=== PATIENT | female | born 1985 | race Hispanic/Latino ===

== ENCOUNTER 2017-04-23 17:37 | Observation (INO) | payer OTHER ==
[2017-04-23] MEDS ORDERED: Iohexol 240 (50 ml) PO ONE (19:13)
[2017-04-23] MEDS ORDERED: Iohexol 240 (50 ml) ONE (19:52)
--- NOTE | 2017-04-23 19:53 | ED PDOC ---
HPI: Abdomen Time Seen by Provider: 04/23/17 18:04 Chief Complaint (Nursing): Abdominal Pain Chief Complaint (Provider): Epigastric and left upper quadrant abdominal pain History Per: Patient History/Exam Limitations: clinical condition Onset/Duration Of Symptoms: Days (x2) Additional Complaint(s): 31 year old female with a history of irritable bowel syndrome presents to the Emergency Department complaining of epigastric and left upper quadrant abdominal pain since yesterday. Pain has gradually gotten worse today. Also complains of constipation, which she states is typical for her IBS, and 1 episode of vomiting. Vomitus was non-bloody. Patient denies any fever, chest pain, urinary symptoms, or bloody stool. PMD: Provider in [place] Past Medical History Reviewed: Historical Data, Nursing Documentation, Vital Signs Vital Signs: Last Vital Signs Temp 98.6 F 04/24/17 07:50 Pulse 72 04/24/17 07:50 Resp 18 04/24/17 07:50 BP 94/58 L 04/24/17 07:50 Pulse Ox 98 04/24/17 07:50 - Medical History Other PMH: Irritable Bowel Syndrome - Surgical History Surgical History: No Surg Hx - Family History Family History: States: Unknown Family Hx - Social History Current smoker - smoking cessation education provided: No Alcohol: None Drugs: Denies - Home Medications Home Medications: Ambulatory Orders Medication Instructions Recorded Ciprofloxacin [Cipro] 500 mg PO BID #10 tab 04/24/17 Linaclotide [Linzess] 145 mcg PO DAILY 04/24/17 Sertraline [Zoloft] 50 mg PO DAILY 04/24/17 metroNIDAZOLE [Flagyl] 500 mg PO TID #15 tab 04/24/17 - Allergies Allergies/Adverse Reactions: Allergies Allergy/AdvReac Type Severity Reaction Status Date / Time gustavo Allergy ANAPHYLAXIS Verified 04/23/17 17:57 shellfish derived Allergy RASH Verified 04/24/17 01:49 Review of Systems ROS Statement: Except As Marked, All Systems Reviewed And Found Negative Cardiovascular: Negative for: Chest Pain Gastrointestinal: Positive for: Vomiting (non-bloody), Abdominal Pain ( epigastric and left upper quadrant), Constipation. Negative for: Hematochezia Genitourinary Female: Negative for: Dysuria, Frequency, Hematuria Physical Exam - Reviewed Nursing Documentation Reviewed: Yes Vital Signs Reviewed: Yes - Physical Exam Appears: Positive for: Well, Non-toxic, No Acute Distress Head Exam: Positive for: ATRAUMATIC, NORMAL INSPECTION, NORMOCEPHALIC Skin: Positive for: Normal Color, Warm, DRY Eye Exam: Positive for: EOMI, Normal appearance, PERRL Neck: Positive for: Normal, Painless ROM Cardiovascular/Chest: Positive for: Regular Rate, Rhythm. Negative for: Murmur Respiratory: Positive for: Normal Breath Sounds. Negative for: Accessory Muscle Use, Respiratory Distress Gastrointestinal/Abdominal: Positive for: Soft, Tenderness (Epigastric left upper and right upper quadrant). Negative for: Distended, Guarding Back: Positive for: Normal Inspection. Negative for: Vertebral Tenderness Extremity: Positive for: Normal ROM. Negative for: Pedal Edema, Calf Tenderness Neurologic/Psych: Positive for: Alert, Oriented - Laboratory Results Result Diagrams: 04/24/17 06:00 04/24/17 06:00 - ECG O2 Sat by Pulse Oximetry: 100 (RA) Pulse Ox Interpretation: Normal Medical Decision Making Medical Decision Making: Initial Impression: Abdominal Pain Differential: Gastritis, pancreatitis, colitis, and rule out acute appendicitis Initial Plan: --CT of the Abdomen and Pelvis without PO Contrast --CMP --Lipase --Urine --Urine Dipstick --CBC with Differential --Iohexol 50 mL PO --Zofran Tab 4mg PO --Reevaluation Labs Reviewed: LFTs elevated, WBC at 15.8, Potassium is low. CT ABDOMEN/PELVIS: FINDINGS: Lower thorax: Minimal atelectasis. ABDOMEN: Liver: Unremarkable. No mass. Gallbladder and bile ducts: No calcified stones. No ductal dilation. Pancreas: No ductal dilation. No mass. Spleen: No splenomegaly. Adrenals: No mass. Kidneys and ureters: No mass. No hydronephrosis. Stomach and bowel: No definite mural thickening. No obstruction. Appendix: Borderline enlarged appendix, 6-7 mm in diameter. Apparent mild mucosal enhancement. Equivocal minimal stranding about appendix. PELVIS: Bladder: Unremarkable. Reproductive: Small left ovarian follicle. ABDOMEN and PELVIS: Intraperitoneal space: No significant fluid collection. No free air. Bones/joints: No acute fracture. Soft tissues: Unremarkable. Vasculature: Unremarkable. No aneurysm. Lymph nodes: No pathologically enlarged lymph nodes. IMPRESSION: 1. Borderline enlarged appendix with apparent mild mucosal enhancement. Early appendicitis not excluded. Clinical correlation is needed. 2. Incidental/non-acute findings are described above. Thank you for allowing us to participate in the care of your patient. Dictated and Authenticated by: Dane Becker MD 04/23/2017 10:59 PM Eastern Time ([place] & [place]) Time: 2305 Patient history, lab findings and CT results discussed with Dr. Beckwith. Dr. Beckwith requesting patient to be admitted to hospitalist for equivocal appendicitis; requesting NO ANTIBIOTICS to be given at this time. Scribe Attestation: Documented by Amanda White, acting as a scribe for Mick King MD Provider Scribe Attestation: All medical record entries made by the Scribe were at my direction and personally dictated by me. I have reviewed the chart and agree that the record accurately reflects my personal performance of the history, physical exam, medical decision making, and the department course for this patient. I have also personally directed, reviewed, and agree with the discharge instructions and disposition Disposition - Clinical Impression Clinical Impression: Abdominal pain in female - Patient ED Disposition Is Patient to be Admitted: Yes Discussed With DrGeon: Nolan Joseph Doctor Will See Patient In The: Hospital Counseled Patient/Family Regarding: Studies Performed, Diagnosis - Disposition Disposition Time: 23:00 Condition: FAIR - Pt Status Changed To: Hospital Disposition Of: Observation - POA Present On Arrival: None
[2017-04-23 20:04] LABS: BASO # 0.1 K/uL (0.0-0.2); BASO % 0.4 % (0.0-2.0); EOS # 0.1 K/uL (0.0-0.7); EOS % 0.9 % (0.0-4.0); HEMOGLOBIN 12.1 g/dL (12.0-16.0); LYMPH # 0.3 K/uL (1.0-4.3); LYMPH % 2.1 % (20.0-40.0); MEAN CELL VOLUME 94.9 fl (81.0-99.0); MEAN CORPUSCULAR HGB CONC 32.6 g/dL (33.0-37.0); MEAN PLATELET VOLUME 9.1 fl (7.2-11.7); MONO # 0.4 K/uL (0.0-0.8); MONO % 2.3 % (0.0-10.0); NEUT # 14.9 K/uL (1.8-7.0); NEUT % 94.3 % (50.0-75.0); NRBC % 0.1 % (0.0-0.0); PLATELET COUNT 262 K/uL (130-400); WHITE BLOOD COUNT 15.8 K/uL (4.8-10.8)
[2017-04-23 20:09] LABS: ALB/GLOB RATIO 1.4 (1.0-2.1); ALBUMIN 4.1 g/dL (3.5-5.0); ALT/SGPT 75 U/L (9-52); AST/SGOT 125 U/L (14-36); BLOOD UREA NITROGEN 14 mg/dl (7-17); CALCIUM 9.2 mg/dL (8.4-10.2); GFR AFRICAN-AMERICAN > 60; GFR NON-AFRICAN AMERICAN > 60; LIPASE 99 U/L (23-300)
[2017-04-23] MEDS ORDERED: Iohexol 300 100 ML IJ ONE (21:36)
[2017-04-23] MEDS ORDERED: Sodium Chloride 0.9% 50 ML IV ONE (21:36)
[2017-04-23 22:10] LABS: LYMPHOCYTE 1 % (20-50); MONOCYTE 1 % (0-10); NEUTROPHIL 98 % (42-75); PLATELET ESTIMATE NORMAL (NORMAL); TOTAL CELLS COUNTED 100
--- NOTE | 2017-04-23 23:00 | CT ---
EXAM: CT Abdomen and Pelvis With Intravenous Contrast CLINICAL HISTORY: 31 years old, female; Pain; Abdominal pain; Generalized; Patient HX: Abd pain. Irritable bowel syndrome TECHNIQUE: Axial computed tomography images of the abdomen and pelvis with intravenous contrast. All CT scans at this facility use one or more dose reduction techniques, viz.: automated exposure control; ma/kV adjustment per patient size (including targeted exams where dose is matched to indication; i.e. head); or iterative reconstruction technique. Coronal and sagittal reformatted images were created and reviewed. CONTRAST: 98 mL of OMNIPAQUE administered intravenously. COMPARISON: CT - ABD PELVIS IV CONTRAST ONLY 2016-06-05 03:10 FINDINGS: Lower thorax: Minimal atelectasis. ABDOMEN: Liver: Unremarkable. No mass. Gallbladder and bile ducts: No calcified stones. No ductal dilation. Pancreas: No ductal dilation. No mass. Spleen: No splenomegaly. Adrenals: No mass. Kidneys and ureters: No mass. No hydronephrosis. Stomach and bowel: No definite mural thickening. No obstruction. Appendix: Borderline enlarged appendix, 6-7 mm in diameter. Apparent mild mucosal enhancement. Equivocal minimal stranding about appendix. PELVIS: Bladder: Unremarkable. Reproductive: Small left ovarian follicle. ABDOMEN and PELVIS: Intraperitoneal space: No significant fluid collection. No free air. Bones/joints: No acute fracture. Soft tissues: Unremarkable. Vasculature: Unremarkable. No aneurysm. Lymph nodes: No pathologically enlarged lymph nodes. IMPRESSION: 1. Borderline enlarged appendix with apparent mild mucosal enhancement. Early appendicitis not excluded. Clinical correlation is needed. 2. Incidental/non-acute findings are described above.
[2017-04-23] MEDS ORDERED: Sodium Chloride 0.9% 1,000 ML IV STA (23:12)
--- NOTE | 2017-04-23 23:22 | CP.PCM.HP ---
History of Present Illness - History of Present Illness History of Present Illness: PMD: Provider in [place] Chief Complaint: Abdominal Pain The patient was seen and examined in the ED HPI: 31 years old female with hx of IBS, comes with a 2 days hx of sharp, continuous then crampy Epigastric pain radiating to the left upper Quadrant with an intensity of 8/10 today. she had one episode of vomiting and is constipated. No fever, chest pain, SOB, dysuria nor urinary frequency. She took 2 Advil and linzess without much relief. PMH: IBS; Hemorrhoids PSH: Denies SH: No illegal drug use; No Smoking: Occasional Alcohol; Lkive with her ; Works in [employer] FH: States: Unknown Family Hx Allergies: NKDA Gustavo Medication: Reviewed Present on Admission - Present on Admission Any Indicators Present on Admission: No History of DVT/PE: No History of Uncontrolled Diabetes: No Urinary Catheter: No Decubitus Ulcer Present: No Review of Systems - Constitutional Constitutional: Headache. absent: Chills, Fever - EENT Eyes: Requires Corrective Lenses. absent: Diplopia, Floaters, Sees Flashes Ears: absent: Decreased Hearing, Ear Discharge, Ear Pain Nose/Mouth/Throat: absent: Epistaxis, Nasal Congestion, Nasal Discharge - Cardiovascular Cardiovascular: absent: Chest Pain, Dyspnea, Edema, Lightheadedness, Palpitations - Respiratory Respiratory: absent: Cough, Dyspnea, Stridor, Excessive Mucous Production - Gastrointestinal Gastrointestinal: Abdominal Pain, Constipation, Cramping, Nausea, Vomiting. absent: Diarrhea - Genitourinary Genitourinary: absent: Dysuria, Flank Pain, Hematuria, Urinary Frequency - Musculoskeletal Musculoskeletal: absent: Arthralgias, Back Pain, Joint Swelling, Muscle Weakness - Integumentary Integumentary: absent: Pruritus, Rash, Skin Ulcer, Sores, Striae, Swelling - Neurological Neurological: Headaches. absent: Confusion, Dizziness, Focal Weakness, Loss of Vision - Psychiatric Psychiatric: absent: Anxiety, Depression, Panic Attacks - Endocrine Endocrine: absent: Palpitations, Polydipsia, Polyphagia, Polyuria - Hematologic/Lymphatic Hematologic: absent: Easy Bleeding, Easy Bruising Past Patient History - Past Medical History & Family History Past Medical History?: Yes - Past Social History Smoking Status: Never Smoked Chewing Tobacco Use: No Cigar Use: No Alcohol: Social Drugs: Denies Home Situation {Lives}: With Family - CARDIAC Hx Cardiac Disorders: No - PULMONARY Hx Respiratory Disorders: No - NEUROLOGICAL Hx Neurological Disorder: No - HEENT Hx HEENT Problems: No - RENAL Hx Chronic Kidney Disease: No - ENDOCRINE/METABOLIC Hx Endocrine Disorders: No - HEMATOLOGICAL/ONCOLOGICAL Hx Blood Disorders: No - INTEGUMENTARY Hx Dermatological Problems: No - MUSCULOSKELETAL/RHEUMATOLOGICAL Hx Musculoskeletal Disorders: No - GASTROINTESTINAL Hx Hemorrhoids: Yes Hx Irritable Bowel: Yes - GENITOURINARY/GYNECOLOGICAL Hx Genitourinary Disorders: No - PSYCHIATRIC Hx Psychophysiologic Disorder: No Hx Substance Use: No - SURGICAL HISTORY Hx Surgeries: No - ANESTHESIA Hx Anesthesia: No Meds Allergies/Adverse Reactions: Allergies Allergy/AdvReac Type Severity Reaction Status Date / Time gustavo Allergy ANAPHYLAXIS Verified 04/23/17 17:57 Physical Exam - Constitutional Appears: No Acute Distress - Head Exam Head Exam: ATRAUMATIC, NORMAL INSPECTION, NORMOCEPHALIC - Eye Exam Eye Exam: EOMI, Normal appearance Pupil Exam: NORMAL ACCOMODATION, PERRL - ENT Exam ENT Exam: Mucous Membranes Moist, Normal Exam, Normal External Ear Exam, Normal Oropharynx - Neck Exam Neck exam: Positive for: Full Rom, Normal Inspection. Negative for: Lymphadenopathy, Tenderness - Respiratory Exam Respiratory Exam: Clear to Auscultation Bilateral. absent: Rales, Rhonchi, Wheezes - Cardiovascular Exam Cardiovascular Exam: REGULAR RHYTHM, RRR, +S1, +S2 - GI/Abdominal Exam GI & Abdominal Exam: Normal Bowel Sounds, Soft Additional comments: Pain to the Epigastrium and LUQ, No guarding, no rebound - Rectal Exam Rectal Exam: Deferred - Extremities Exam Extremities exam: Positive for: normal inspection. Negative for: calf tenderness, joint swelling, pedal edema - Back Exam Back exam: NORMAL INSPECTION. absent: CVA tenderness (L), CVA tenderness (R) - Neurological Exam Neurological exam: Alert, CN II-XII Intact, Oriented x3, Reflexes Normal - Psychiatric Exam Psychiatric exam: Normal Affect, Normal Mood - Skin Skin Exam: Dry, Intact, Normal Color, Warm Results - Vital Signs Recent Vital Signs: Last Vital Signs Temp 97.8 F 04/23/17 17:57 Pulse 82 04/23/17 17:57 Resp 18 04/23/17 17:57 BP 119/54 L 04/23/17 17:57 Pulse Ox 100 04/23/17 23:14 - Labs Result Diagrams: 04/23/17 19:45 04/23/17 19:45 Labs: Laboratory Results - last 24 hr 04/23/17 04/23/17 19:45 19:45 WBC 15.8 H RBC 3.90 Hgb 12.1 Hct 37.0 MCV 94.9 MCH 31.0 MCHC 32.6 L RDW 13.0 Plt Count 262 MPV 9.1 Neut % (Auto) 94.3 H Lymph % (Auto) 2.[address] [place] % (Auto) 2.3 Eos % (Auto) 0.9 Baso % (Auto) 0.4 Neut # 14.9 H Lymph # 0.[address] [place] # 0.4 Eos # 0.1 Baso # 0.1 Neutrophils % (Manual) 98 H Lymphocytes % (Manual) 1 L Monocytes % (Manual) 1 Platelet Estimate Normal Sodium 139 Potassium 3.5 L Chloride 106 Carbon Dioxide 22 Anion Gap 15 BUN 14 Creatinine 0.6 L Est GFR ( Amer) > 60 Est GFR (Non-Af Amer) > 60 Random Glucose 99 Calcium 9.2 Total Bilirubin 0.8 AST 125 H ALT 75 H D Alkaline Phosphatase 118 Total Protein 7.0 Albumin 4.1 Globulin 2.9 Albumin/Globulin Ratio 1.4 Lipase 99 - Imaging and Cardiology CT scan - abdomen Status: Image reviewed by me, Report reviewed by me Additional comment: EXAM: CT Abdomen and Pelvis With Intravenous Contrast COMPARISON: CT - ABD PELVIS IV CONTRAST ONLY 2016-06-05 03:10 FINDINGS: Lower thorax: Minimal atelectasis. ABDOMEN: Liver: Unremarkable. No mass. Gallbladder and bile ducts: No calcified stones. No ductal dilation. Pancreas: No ductal dilation. No mass. Spleen: No splenomegaly. Adrenals: No mass. Kidneys and ureters: No mass. No hydronephrosis. Stomach and bowel: No definite mural thickening. No obstruction. Appendix: Borderline enlarged appendix, 6-7 mm in diameter. Apparent mild mucosal enhancement. Equivocal minimal stranding about appendix. PELVIS: Bladder: Unremarkable. Reproductive: Small left ovarian follicle. ABDOMEN and PELVIS: Intraperitoneal space: No significant fluid collection. No free air. Bones/joints: No acute fracture. Soft tissues: Unremarkable. Vasculature: Unremarkable. No aneurysm. Lymph nodes: No pathologically enlarged lymph nodes. IMPRESSION: 1. Borderline enlarged appendix with apparent mild mucosal enhancement. Early appendicitis not excluded. Clinical correlation is needed. 2. Incidental/non-acute findings are described above Assessment & Plan - Assessment and Plan (Free Text) Assessment: #. Acute Appendicitis #. hypookalemia #. Leukocytosis Plan: 31 years old female with hx of IBS, comes with a 2 days hx of sharp, continuous then crampy Epigastric pain radiating to the left upper Quadrant with one episode of vomiting. She took 2 Advil and linzess without much relief. #. Acute Appendicitis IMPRESSION: 1. Borderline enlarged appendix with apparent mild mucosal enhancement. Early appendicitis not excluded. - Consult Dr Beckwith surgery - NPO - IV fluids - Zofran for vomiting - follow CBC #. Hypokalemia - Repleat with KCL in IV fluids - Follow Electrolytes #. Leukocytosis - Follow WBC - Follow UA #. DVT Prophylaxis with SCD #. Code Status: Full - Date & Time Date: 04/23/17 Time: 23:22
[2017-04-24 06:45] LABS: SQUAMOUS EPITHIAL 1 /hpf (0-5); URINE BILIRUBIN NEGATIVE (NEGATIVE); URINE BLOOD MODERATE (NEGATIVE); URINE CLARITY SLIGHTY-CLOUDY (Clear); URINE COLOR YELLOW (YELLOW); URINE GLUCOSE (UA) NEG (Normal); URINE LEUKOCYTE ESTERASE NEG Leu/uL (Negative); URINE NITRATE NEGATIVE (NEGATIVE); URINE PROTEIN NEGATIVE (NEGATIVE); URINE UROBILINOGEN 0.2-1.0 mg/dL (0.2-1.0)
[2017-04-24 07:35] LABS: BASO % 0.3 % (0.0-2.0); EOS # 0.4 K/uL (0.0-0.7); HEMOGLOBIN 10.2 g/dL (12.0-16.0); LYMPH # 1.1 K/uL (1.0-4.3); LYMPH % 7.8 % (20.0-40.0); MEAN CELL VOLUME 95.8 fl (81.0-99.0); MEAN CORPUSCULAR HEMOGLOBIN 30.9 pg (27.0-31.0); MEAN CORPUSCULAR HGB CONC 32.2 g/dL (33.0-37.0); MEAN PLATELET VOLUME 9.3 fl (7.2-11.7); MONO # 0.4 K/uL (0.0-0.8); MONO % 2.8 % (0.0-10.0); NEUT # 12.4 K/uL (1.8-7.0); NEUT % 86.1 % (50.0-75.0); RBC 3.29 Mil/uL (3.80-5.20); RED CELL DISTRIBUTION WIDTH 13.3 % (11.5-14.5); WHITE BLOOD COUNT 14.3 K/uL (4.8-10.8)
[2017-04-24 07:51] VITALS: BP 94/58; PULSE 72; RESP 18; TEMP 98.6
[2017-04-24 08:26] LABS: INR 1.1 (0.9-1.2); PROTHROMBIN TIME 11.9 Seconds (9.8-13.1)
[2017-04-24 08:27] LABS: PARTIAL THROMBOPLASTIN TIME 26.9 Seconds (25.6-37.1)
[2017-04-24 08:33] LABS: ALB/GLOB RATIO 1.2 (1.0-2.1); ALBUMIN 3.1 g/dL (3.5-5.0); ALT/SGPT 56 U/L (9-52); AST/SGOT 50 U/L (14-36); BLOOD UREA NITROGEN 10 mg/dl (7-17); CALCIUM 8.2 mg/dL (8.4-10.2); GFR AFRICAN-AMERICAN > 60; GFR NON-AFRICAN AMERICAN > 60
--- NOTE | 2017-04-24 08:56 | CP.PCM.CON ---
History of Present Illness - History of Present Illness History of Present Illness: General Surgery: Dr Beckwith PT is a 31F with history of IBS-C who presented to ED with ~24 hour history of LUQ pain. Pt states pain was sharp and crampy in nature, but has since resolved. She denies any nausea, vomiting, fevers or chills. She has been having bowel movements but they have been consistently liquid in nature. Pt denies any recent sick contacts. Denies any pain the RLQ or umbilicus. Pain is not exarcerbated by movement of physical exam. Pt states she has an appetite Review of Systems - Review of Systems All systems: reviewed and no additional remarkable complaints except (as per hpi ) Past Patient History - Past Medical History & Family History Past Medical History?: Yes - Past Social History Smoking Status: Never Smoked - CARDIAC Hx Cardiac Disorders: No - PULMONARY Hx Respiratory Disorders: No - NEUROLOGICAL Hx Neurological Disorder: No - HEENT Hx HEENT Problems: No - RENAL Hx Chronic Kidney Disease: No - ENDOCRINE/METABOLIC Hx Endocrine Disorders: No - HEMATOLOGICAL/ONCOLOGICAL Hx Blood Disorders: No - INTEGUMENTARY Hx Dermatological Problems: No - MUSCULOSKELETAL/RHEUMATOLOGICAL Hx Musculoskeletal Disorders: No Hx Falls: No - GASTROINTESTINAL Hx Gastrointestinal Disorders: Yes Hx Irritable Bowel: Yes - GENITOURINARY/GYNECOLOGICAL Hx Genitourinary Disorders: No - PSYCHIATRIC Hx Psychophysiologic Disorder: No Hx Substance Use: No - SURGICAL HISTORY Hx Surgeries: Yes Other/Comment: Colonoscopy - ANESTHESIA Hx Anesthesia: Yes Hx Anesthesia Reactions: No Meds Allergies/Adverse Reactions: Allergies Allergy/AdvReac Type Severity Reaction Status Date / Time gustavo Allergy ANAPHYLAXIS Verified 04/23/17 17:57 shellfish derived Allergy RASH Verified 04/24/17 01:49 - Medications Medications: Current Medications Potassium Chloride 10 meq/ (Sodium Chloride) 1,005 mls @ 125 mls/hr IV .Q8H3M SUE Stop: 04/25/17 00:29 Last Admin: 04/24/17 08:37 Dose: Not Given Ketorolac Tromethamine (Toradol) 15 mg IVP Q6 PRN PRN Reason: Other Last Admin: 04/24/17 01:31 Dose: 15 mg Ondansetron HCl (Zofran Inj) 4 mg IVP Q4 PRN PRN Reason: Nausea/Vomiting Physical Exam - Constitutional Appears: Non-toxic, No Acute Distress - Head Exam Head Exam: NORMAL INSPECTION - Eye Exam Eye Exam: Normal appearance - ENT Exam ENT Exam: Mucous Membranes Moist - Respiratory Exam Respiratory Exam: NORMAL BREATHING PATTERN. absent: Accessory Muscle Use, Respiratory Distress - Cardiovascular Exam Cardiovascular Exam: REGULAR RHYTHM. absent: Tachycardia - GI/Abdominal Exam GI & Abdominal Exam: Normal Bowel Sounds, Soft. absent: Distended, Firm, Guarding, Hernia, Tenderness - Neurological Exam Neurological exam: Alert, Oriented x3 - Psychiatric Exam Psychiatric exam: Normal Affect, Normal Mood - Skin Skin Exam: Normal Color, Warm Results - Vital Signs Recent Vital Signs: Last Vital Signs Temp 98.6 F 04/24/17 07:50 Pulse 72 04/24/17 07:50 Resp 18 04/24/17 07:50 BP 94/58 L 04/24/17 07:50 Pulse Ox 98 04/24/17 07:50 - Labs Result Diagrams: 04/24/17 06:00 04/24/17 06:00 Labs: Laboratory Results - last 24 hr 04/23/17 04/23/17 04/24/17 19:45 19:45 06:00 WBC 15.8 H 14.3 H RBC 3.90 3.29 L Hgb 12.1 10.2 L Hct 37.0 31.6 L MCV 94.9 95.8 MCH 31.0 30.9 MCHC 32.6 L 32.2 L RDW 13.0 13.3 Plt Count 262 239 MPV 9.1 9.3 Neut % (Auto) 94.3 H 86.1 H Lymph % (Auto) 2.1 L 7.8 L [place] % (Auto) 2.3 2.8 Eos % (Auto) 0.9 3.0 Baso % (Auto) 0.4 0.3 Neut # 14.9 H 12.4 H Lymph # 0.3 L 1.1 [place] # 0.4 0.4 Eos # 0.1 0.4 Baso # 0.1 0.0 Neutrophils % (Manual) 98 H Lymphocytes % (Manual) 1 L Monocytes % (Manual) 1 Platelet Estimate Normal PT INR APTT Sodium 139 Potassium 3.5 L Chloride 106 Carbon Dioxide 22 Anion Gap 15 BUN 14 Creatinine 0.6 L Est GFR ( Amer) > 60 Est GFR (Non-Af Amer) > 60 Random Glucose 99 Calcium 9.2 Total Bilirubin 0.8 AST 125 H ALT 75 H D Alkaline Phosphatase 118 Total Protein 7.0 Albumin 4.1 Globulin 2.9 Albumin/Globulin Ratio 1.4 Lipase 99 Urine Color Urine Clarity Urine pH Ur Specific [place] Urine Protein Urine Glucose (UA) Urine Ketones Urine Blood Urine Nitrate Urine Bilirubin Urine Urobilinogen Ur Leukocyte Esterase Urine RBC (Auto) Urine Microscopic WBC Ur Squamous Epith Cells 04/24/17 04/24/17 04/24/17 06:00 06:00 06:15 WBC RBC Hgb Hct MCV MCH MCHC RDW Plt Count MPV Neut % (Auto) Lymph % (Auto) [place] % (Auto) Eos % (Auto) Baso % (Auto) Neut # Lymph # [place] # Eos # Baso # Neutrophils % (Manual) Lymphocytes % (Manual) Monocytes % (Manual) Platelet Estimate PT 11.9 INR 1.1 APTT 26.9 Sodium 140 Potassium 3.3 L Chloride 107 Carbon Dioxide 24 Anion Gap 12 BUN 10 Creatinine 0.7 Est GFR ( Amer) > 60 Est GFR (Non-Af Amer) > 60 Random Glucose 83 Calcium 8.2 L Total Bilirubin 0.7 AST 50 H D ALT 56 H D Alkaline Phosphatase 80 Total Protein 5.7 L Albumin 3.1 L D Globulin 2.6 Albumin/Globulin Ratio 1.2 Lipase Urine Color Yellow Urine Clarity Slighty-cloudy Urine pH 5.0 Ur Specific [place] 1.060 H Urine Protein Negative Urine Glucose (UA) Neg Urine Ketones 20 Urine Blood Moderate Urine Nitrate Negative Urine Bilirubin Negative Urine Urobilinogen 0.2-1.0 Ur Leukocyte Esterase Neg Urine RBC (Auto) 4 H Urine Microscopic WBC 5 Ur Squamous Epith Cells 1 Assessment & Plan - Assessment and Plan (Free Text) Assessment: 31F with abdominal pain; resolved Plan: presentation not consistent with appendicitis - CT equivocal symptoms not resolved OK to trial CLD and advance as tolerated clear for D/C this afternoon from surgery if pt tolerates diet d/w Dr Beckwith who has evaluated the pt and agrees Berry, PGY3
[2017-04-24] MEDS ORDERED: Piperacillin/Tazobact 3.375 GM in Sodium Chloride 0.9% 100 ML IVPB SCH (09:00)
--- NOTE | 2017-04-24 14:13 | CP.PCM.DIS ---
Provider - Provider Date of Admission: 04/23/17 23:14 Attending physician: Nolan Joseph Consults: Surgery : Dr Beckwith Time Spent in preparation of Discharge (in minutes): 30 Diagnosis - Discharge Diagnosis (1) Abdominal pain Status: Acute (2) IBS (irritable bowel syndrome) Status: Chronic (3) Transaminitis Status: Acute (4) Depression Status: Chronic Hospital Course - Lab Results Lab Results: Most Recent Lab Values WBC 14.3 K/uL (4.8-10.8) H 04/24/17 06:00 RBC 3.29 Mil/uL (3.80-5.20) L 04/24/17 06:00 Hgb 10.2 g/dL (12.0-16.0) L 04/24/17 06:00 Hct 31.6 % (34.0-47.0) L 04/24/17 06:00 MCV 95.8 fl (81.0-99.0) 04/24/17 06:00 MCH 30.9 pg (27.0-31.0) 04/24/17 06:00 MCHC 32.2 g/dL (33.0-37.0) L 04/24/17 06:00 RDW 13.3 % (11.5-14.5) 04/24/17 06:00 Plt Count 239 K/uL (130-400) 04/24/17 06:00 MPV 9.3 fl (7.2-11.7) 04/24/17 06:00 Neut % (Auto) 86.1 % (50.0-75.0) H 04/24/17 06:00 Lymph % (Auto) 7.8 % (20.0-40.0) L 04/24/17 06:00 [place] % (Auto) 2.8 % (0.0-10.0) 04/24/17 06:00 Eos % (Auto) 3.0 % (0.0-4.0) 04/24/17 06:00 Baso % (Auto) 0.3 % (0.0-2.0) 04/24/17 06:00 Neut # 12.4 K/uL (1.8-7.0) H 04/24/17 06:00 Lymph # 1.1 K/uL (1.0-4.3) 04/24/17 06:00 [place] # 0.4 K/uL (0.0-0.8) 04/24/17 06:00 Eos # 0.4 K/uL (0.0-0.7) 04/24/17 06:00 Baso # 0.0 K/uL (0.0-0.2) 04/24/17 06:00 Neutrophils % (Manual) 98 % (42-75) H 04/23/17 19:45 Lymphocytes % (Manual) 1 % (20-50) L 04/23/17 19:45 Monocytes % (Manual) 1 % (0-10) 04/23/17 19:45 Platelet Estimate Normal (NORMAL) 04/23/17 19:45 PT 11.9 Seconds (9.8-13.1) 04/24/17 06:00 INR 1.1 (0.9-1.2) 04/24/17 06:00 APTT 26.9 Seconds (25.6-37.1) 04/24/17 06:00 Sodium 140 mmol/l (132-148) 04/24/17 06:00 Potassium 3.3 MMOL/L (3.6-5.0) L 04/24/17 06:00 Chloride 107 mmol/L (98-107) 04/24/17 06:00 Carbon Dioxide 24 mmol/L (22-30) 04/24/17 06:00 Anion Gap 12 (10-20) 04/24/17 06:00 BUN 10 mg/dl (7-17) 04/24/17 06:00 Creatinine 0.7 mg/dl (0.7-1.2) 04/24/17 06:00 Est GFR ( Amer) > 60 04/24/17 06:00 Est GFR (Non-Af Amer) > 60 04/24/17 06:00 Random Glucose 83 mg/dL (65-105) 04/24/17 06:00 Calcium 8.2 mg/dL (8.4-10.2) L 04/24/17 06:00 Total Bilirubin 0.7 mg/dl (0.2-1.3) 04/24/17 06:00 AST 50 U/L (14-36) H D 04/24/17 06:00 ALT 56 U/L (9-52) H D 04/24/17 06:00 Alkaline Phosphatase 80 U/L (38-126) 04/24/17 06:00 Total Protein 5.7 G/DL (6.3-8.2) L 04/24/17 06:00 Albumin 3.1 g/dL (3.5-5.0) L D 04/24/17 06:00 Globulin 2.6 gm/dL (2.2-3.9) 04/24/17 06:00 Albumin/Globulin Ratio 1.2 (1.0-2.1) 04/24/17 06:00 Lipase 99 U/L (23-300) 04/23/17 19:45 Urine Color Yellow (YELLOW) 04/24/17 06:15 Urine Clarity Slighty-cloudy (Clear) 04/24/17 06:15 Urine pH 5.0 (5.0-8.0) 04/24/17 06:15 Ur Specific [place] 1.060 (1.003-1.030) H 04/24/17 06:15 Urine Protein Negative mg/dL (NEGATIVE) 04/24/17 06:15 Urine Glucose (UA) Neg mg/dL (Normal) 04/24/17 06:15 Urine Ketones 20 mg/dL (NEGATIVE) 04/24/17 06:15 Urine Blood Moderate (NEGATIVE) 04/24/17 06:15 Urine Nitrate Negative (NEGATIVE) 04/24/17 06:15 Urine Bilirubin Negative (NEGATIVE) 04/24/17 06:15 Urine Urobilinogen 0.2-1.0 mg/dL (0.2-1.0) 04/24/17 06:15 Ur Leukocyte Esterase Neg Reji/uL (Negative) 04/24/17 06:15 Urine RBC (Auto) 4 /hpf (0-3) H 04/24/17 06:15 Urine Microscopic WBC 5 /hpf (0-5) 04/24/17 06:15 Ur Squamous Epith Cells 1 /hpf (0-5) 04/24/17 06:15 - Hospital Course Hospital Course: 31 years old female with hx of IBS, came bec of 2 days hx of sharp, continuous then crampy Epigastric pain radiating to the left upper Quadrant with an intensity of 8/10 . She had one episode of vomiting and is constipated. No fever, no abnormal vaginal discharge, no dysuria nor urinary frequency. She took 2 Advil and Linzess without much relief. CT of abd : Borderline enlarged appendix with apparent mild mucosal enhancement. Early appendicitis not excluded. Pt was observed in Med Surg, Kept NPO. IVF started. Noted leukocytosis. Lipase normal. Surgery was consulted - unlikely Acute Appendicitis. While in the hospital , pt developed diarrhea . Her abdominal symptoms resolved, pain and diarrhea resolved and she tolerated PO diet . (1) Abdominal pain Status: Acute abd pain resolved may be due to IBS , vs Gastritis vs Acute Gastroenteritis tolerating PO diet will d/c home on PO Flagyl and Cipro x 5 days to return to ED if her sxs recurs ff up with her GI in [facility] alejandra (2) IBS (irritable bowel syndrome) Status: Chronic cont Linzess (3) Transaminitis Status: Acute pt admits to drinking Alcohol the night before symptoms started greater than ALT - improving couseled re: Alcohol, denies daily use (4) Depression Status: Chronic cont Zoloft Discharge Exam - Head Exam Head Exam: NORMAL INSPECTION - Eye Exam Eye Exam: EOMI, Normal appearance, PERRL Pupil Exam: NORMAL ACCOMODATION - ENT Exam ENT Exam: Mucous Membranes Moist, Normal External Ear Exam - Neck Exam Neck exam: Full Rom - Respiratory Exam Respiratory Exam: NORMAL BREATHING PATTERN. absent: Wheezes, Respiratory Distress - Cardiovascular Exam Cardiovascular Exam: REGULAR RHYTHM, +S1, +S2 - GI/Abdominal Exam GI & Abdominal Exam: Normal Bowel Sounds, Soft. absent: Tenderness - Extremities Exam Extremities exam: full ROM, normal capillary refill, normal inspection, pedal pulses present - Back Exam Back exam: FULL ROM. absent: CVA tenderness (L), CVA tenderness (R) - Neurological Exam Neurological exam: Alert, CN II-XII Intact, Normal Gait, Oriented x3, Reflexes Normal - Psychiatric Exam Psychiatric exam: Normal Affect, Normal Mood - Skin Skin Exam: Dry, Intact, Normal Color, Warm Discharge Plan - Discharge Medications Prescriptions: Ciprofloxacin [Cipro] 500 mg PO BID #10 tab metroNIDAZOLE [Flagyl] 500 mg PO TID #15 tab - Follow Up Plan Condition: GOOD Disposition: HOME/ ROUTINE Instructions: Acute Abdominal Pain (DC), Acute Abdominal Pain (GEN) Additional Instructions: ff up with PMD alejandra appt with own GI specialist alejandra Return to ED if abd pain recurs or if with fever Referrals: Ralph Beckwith MD [Staff Provider] -
--- NOTE | 2017-04-24 17:15 | CARD ---
APPROVED REPORT EKG Measurement Heart [id number] <Conclusion> Normal sinus rhythm Nonspecific T wave abnormality Abnormal ECG
[2017-04-24 19:10] VITALS: O2SAT 100
== END 2017-04-24 15:57 | disposition home or self-care (01) ==
LOC: H.ER 17:37 → H.ERHOLD 23:14 → H.MEDSURG1 04-24 01:04
PROVIDERS: ADMIT Internal Medicine; ATTEND Internal Medicine
DX: K58.9 Irritable bowel syndrome, unspecified (principal); E87.6 Hypokalemia; F32.9 Major depressive disorder, single episode, unspecified; Z79.899 Other long term (current) drug therapy; K64.9 Unspecified hemorrhoids; R74.0 Nonspecific elevation of levels of transaminase and lactic acid dehydrogenase [LDH]
CPT/HCPCS: 36415; 74177; 80053; 81003; 81025; 83690; 85025; 85610; 85730; 93005; 99284; G0378; J1885; J2543; J7040; Q9966; Q9967